=== PATIENT | female | born 1950 | race Caucasian/White ===

== ENCOUNTER → 2018-08-21 | Outpatient (CLI) | payer MEDICARE, OTHER ==
--- NOTE | 2018-08-21 16:32 | KCIC ---
EXAM: Bilateral digital screening mammogram with tomosynthesis. HISTORY: 67-year-old female presents for screening mammography. TECHNIQUE: Full-field digital craniocaudal and mediolateral oblique 2D and 3D tomosynthesis images of both breasts are obtained for evaluation. Computer aided detection with HashParadeD software version 9.3 was applied. COMPARISON: 07/23/2015 BREAST PARENCHYMAL DENSITY: Level B - Scattered fibroglandular densities. FINDINGS: There are areas of nodularity within both breasts which are slightly more conspicuous likely due to differences in technique compared to the prior study. There is no suspicious calcifications or architectural distortion within either breast. IMPRESSION: BI-RADS Category 0: Additional imaging needed. RECOMMENDATION: Sonographic imaging of both breasts is recommended to assess small nodular densities, likely more conspicuous compared to the prior study due to differences in technique. If your mammogram demonstrates that you have dense breast tissue, which could hide abnormalities, and if you have other risk factors for breast cancer that have been identified, you might benefit from supplemental screening tests that may be suggested by your ordering physician. Dense breast tissue, in and of itself, is a relatively common condition. This information is not provided to cause undue concern, but rather to raise your awareness and to promote discussion with your physician regarding the presence of other risk factors, in addition to dense breast tissue. A report of your mammography results will be sent to you and your physician. You should contact your physician if you have any questions or concerns regarding this report. Mammography is a sensitive method for finding small breast cancers, but it does not detect them all and is not a substitute for careful clinical examination. A negative mammogram does not negate a clinically suspicious finding and should not result in delay in biopsying a clinically suspicious abnormality. PQRS compliance statement - Patient information was entered into a reminder system with a target due date for the next mammogram. "Our facility is accredited by the [employer] Mammography [employer]." Electronically signed by: Aislinn Bobby MD (08/21/2018 4:28 PM) [id number]
== END | disposition home or self-care (01) ==
LOC: KCIC MAMMO 15:27
PROVIDERS: ATTEND Family Medicine
DX: Z12.31 Encounter for screening mammogram for malignant neoplasm of breast (principal)
CPT/HCPCS: 77063; 77067

== ENCOUNTER → 2018-09-05 | Outpatient (CLI) | payer MEDICARE, OTHER ==
--- NOTE | 2018-09-05 14:12 | KCIC ---
Bilateral diagnostic breast ultrasound HISTORY: Small round densities on mammogram which may or may not be new Sonographic examination of the breasts was performed bilaterally and multiple static images obtained There are multiple small hypoechoic lesions in the right breast which could be small cysts or fibrosis changes. There is no focal normality in the left breast. There is normal-appearing lymph nodes axilla bilaterally. IMPRESSION: Benign-appearing lesions in the right, no sonographic correlation on the left. Recommend the patient return for bilateral diagnostic mammogram and right breast ultrasound in 6 months to assess stability. These results were discussed with the patient in person. BI-RADS Category 3: Probably Benign. Electronically signed by: Jim Gutierrez III, MD (09/05/2018 2:08 PM) [id number]
== END | disposition home or self-care (01) ==
LOC: KCIC US 13:03
PROVIDERS: ATTEND Family Medicine
DX: N64.89 Other specified disorders of breast (principal)
CPT/HCPCS: 76641

== ENCOUNTER → 2019-03-22 | Outpatient (CLI) | payer MEDICARE, OTHER ==
--- NOTE | 2019-03-22 15:14 | KCIC ---
BILATERAL DIAGNOSTIC 3-D MAMMOGRAPHY AND RIGHT BREAST ULTRASOUND History: Six-month follow-up. Comparison: Bilateral mammogram 08/21/2018 and 2014. Technique: Routine MLO and CC tomosynthesis (3D) digital views performed. Images reviewed by the radiologist at dedicated workstation. Findings: Breast Tissue Density B : There are scattered areas of fibroglandular density. Bilateral glandular nodularity is unchanged. There are no dominant masses, suspicious microcalcifications or architectural distortion. Real-time ultrasound imaging of the right breast is performed. 2 tiny cystic or fibrocystic lesions at 8:00 position 2 cm from the nipple are stable. There is a probable complicated cyst at the 8:00 position 4 cm from the nipple measuring 5 x 3 mm, previously 4 x 4 millimeters. There is stable fibrocystic change 8:30 o'clock position 3 cm from the nipple measuring up to 7 mm. No solid mass or architectural distortion is seen. No abnormal axillary lymph node. IMPRESSION: 1. No mammographic evidence of malignancy. 2. Stable cystic and fibrocystic changes in the right breast near the 8:00 position. 3. Recommend routine mammogram screening. BI-RADS category 2: Benign findings. The images were reviewed with computer-aided detection. Patient information is entered into the reminder system with a target due date for the next screening mammogram. Mammography is the most sensitive method for finding small breast cancers, but it does not detect them all and is not a substitute for careful clinical examination. A negative mammogram does not negate a clinically suspicious finding and should not result in delay in biopsying a clinically suspicious abnormality. "Our facility is accredited by the [employer] Mammography [employer]." Electronically signed by: Khoi Sanders MD (03/22/2019 3:11 PM) [id number]
== END | disposition home or self-care (01) ==
LOC: KCIC MAMMO 12:45
PROVIDERS: ATTEND Family Medicine
DX: R92.8 Other abnormal and inconclusive findings on diagnostic imaging of breast (principal)
CPT/HCPCS: 76641; 77066; G0279; 77062

== ENCOUNTER → 2020-03-25 | Outpatient (CLI) | payer MEDICARE, OTHER ==
--- NOTE | 2020-03-25 16:33 | KCIC ---
Bilateral digital screening mammograms with 3-D tomosynthesis: Reason for examination: Routine screening. Comparison is made to previous studies dated back to 07/23/2015. Bilateral mammograms in CC and oblique projections were obtained with 2-D imaging and 3-D tomosynthesis imaging on a Siemens Inspiration unit and reviewed on the workstation. Interpretation was made with the benefit of CAD. The skin and nipples show no abnormalities. No abnormal axillary lymph nodes are seen. The breast parenchyma shows scattered fatty and fibroglandular density. (Breast density: Category B.) There continue to be small nodular parenchymal densities bilaterally which are stable. There are no new dominant masses, suspicious calcifications or architectural distortion. Impression: No evidence of malignancy. Recommend routine screening. BI-RAD Category 2: Benign. "Our facility is accredited by the [employer] Mammography Program." This patient's information has been entered into a reminder system for the patient to be notified with the results of her examination and a target date for the next mammogram. Electronically signed by: Jennifer Singh MD (03/25/2020 4:30 PM) [id number]
== END | disposition home or self-care (01) ==
LOC: KCIC MAMMO 13:16
PROVIDERS: ATTEND Nurse Practitioner Family
DX: Z12.31 Encounter for screening mammogram for malignant neoplasm of breast (principal); N64.89 Other specified disorders of breast
CPT/HCPCS: 77063; 77067